=== PATIENT | female | born 1970 | race Two or more races ===

== ENCOUNTER → 2020-10-14 | Outpatient (CLI) | payer OTHER ==
--- NOTE | 2020-10-14 17:08 | RAD ---
EXAM: Thyroid Ultrasound INDICATION: Reason: THROAT DRYNESS,HOARSENESS HX OF PARTIAL THYROIDECTOMY / Spl. Instructions: / His tory: ? TECHNIQUE: Real-time ultrasound of the thyroid was performed with permanent freeze-frame documentatio n. COMPARISON: None. ? FINDINGS: THYROID: Thyroid gland is normal and homogeneous echogenicity. ? Right Lobe: 4.7 x 1.2 x 1.4 cm. ? Left Lobe: 4.4 x 1.2 x 1.4 cm. ? Isthmus: 0.3 cm. ?? No thyroid nodule. ? OTHER: No evidence of adjacent cervical adenopathy. ? IMPRESSION: ? Normal thyroid ultrasound. Electronically signed by: Eze Mercedes MD (10/14/2020 5:06 PM) [id number]
== END ==
LOC: US 15:47
PROVIDERS: ATTEND Family Medicine
DX: R49.0 Dysphonia (principal); J39.2 Other diseases of pharynx; Z90.89 Acquired absence of other organs
CPT/HCPCS: 76536